=== PATIENT | female | born 1970 | race Caucasian/White ===

== ENCOUNTER 2021-08-05 18:29 | Emergency (ER) | payer OTHER ==
[~2021-08-05] VITALS: Ht 165.1 cm; Wt 72.6 kg
[~2021-08-05 18:29] MED LIST: ACID CONTROL75 MG PO; BACTRIM DS TAB1 EACH PO; CYCLOBENZAPRINE10 MG PO; EXCEDRIN EXTRA1 EAC1 PO; EXTRA STRENGTH500 MG PO; GEODON60 MG PO; GEODON80 MG PO; HYDROXYZINE HCL50 MG PO; IBUPROFEN600 MG PO; KLONOPIN2 MG PO; LEVOTHROID100 MCG PO; LEVOTHYROXINE200 MCG PO; LEVOTHYROXINE25 MCG PO; LITHIUM CARBON300 M1 PO; MOTRIN IB200 MG PO; NORCO 5-325 TA1 EACH PO; OXYCODONE-ACET1 EAC1 PO; PRAZOSIN HCL2 MG PO; REQUIP4 MG PO; SYNTHROID200 MCG PO; TRAMADOL HCL50 MG PO; TRAZODONE HCL150 MG PO; WELLBUTRIN XL300 MG PO
--- OUTSIDE RECORDS SUMMARY | 2021-08-05 18:32 | XMS ---
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 [place] VISIT COUNT (12 MO.) [address] TOTAL 3 NOTE: Visits indicate total known visits. ED/UCC VISIT TRACKING (12 MO.) 08/05/2021 18:30 [facility] TYPE: Emergency COMPLAINT: - LEG SWELLING 07/12/2021 05:20 [facility] OR TYPE: Emergency COMPLAINT: - RAUSCH DIAGNOSES: - RAUSCH 12/21/2020 15:02 [facility] OR TYPE: Emergency DIAGNOSES: - TOE INJ - Nondisplaced fracture of proximal phalanx of left lesser toe(s), initial encounter for closed fracture INPATIENT VISIT TRACKING (12 MO.) 07/12/2021 08:25 [facility] OR TYPE: Medical Surgical DIAGNOSES: - Other psychoactive substance abuse, uncomplicated - Myxedema coma - RAUSCH - Encephalopathy, unspecified [email or web address]
[2021-08-05] MEDS ORDERED: LEVOTHYROXINE175 MC1 PO (19:21)
[2021-08-05] MEDS ORDERED: GABAPENTIN400 MG PO (19:22)
== END 2021-08-05 22:19 | disposition home or self-care (01) ==
LOC: ED 18:29
DX: M79.89 Other specified soft tissue disorders (principal); Z98.84 Bariatric surgery status; Z90.710 Acquired absence of both cervix and uterus; Z79.899 Other long term (current) drug therapy
CPT/HCPCS: 71045; 80053; 83880; 84443; 85025; 93970; 99284-25

== ENCOUNTER 2022-10-17 20:23 | Emergency (ER) | payer OTHER ==
[~2022-10-17] VITALS: Ht 165.1 cm; Wt 79.4 kg
[~2022-10-17 20:23] MED LIST changes: +GABAPENTIN400 MG PO; +LEVOTHYROXINE175 MC1 PO
[2022-10-18] MEDS ORDERED: SYNTHROID150 MCG PO (00:04)
--- NOTE | 2022-10-18 07:47 | EKG ---
[facility] [address] [place], [place] [address] Signed Normal sinus rhythm Cannot rule out Anterior infarct , age undetermined Abnormal ECG No previous ECGs available Confirmed by MARGAUX BABIN MD ([id number]) on 10/18/2022 7:47:21 AM Electronically Signed By: MARGAUX BABIN MD 10/18/22 0747 PATIENT NAME: SILVIO CORTES Electrocardiogram DATE OF : 68 PHYSICIAN: MARGAUX BABIN MD REPORT #: [id number] REPORT IS CONFIDENTIAL AND NOT TO BE RELEASED WITHOUT AUTHORIZATION
== END 2022-10-18 00:30 | disposition home or self-care (01) ==
LOC: ED 20:23
DX: E03.9 Hypothyroidism, unspecified (principal); I50.9 Heart failure, unspecified; D64.9 Anemia, unspecified; Z79.899 Other long term (current) drug therapy
CPT/HCPCS: 36415; 71045; 80053; 83880; 84443; 84484; 85025; 85379; 93005; 93010; 99284-25

== ENCOUNTER 2024-07-25 14:44 | Emergency (ER) | payer OTHER ==
[~2024-07-25] VITALS: Ht 165.1 cm; Wt 83.2 kg
[~2024-07-25 14:44] MED LIST changes: +SYNTHROID150 MCG PO
--- OUTSIDE RECORDS SUMMARY | 2024-07-25 14:47 | XMS ---
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 PHONE: [phone] Abisai has no Care Guidelines for this patient. [place] VISIT COUNT (12 MO.) [address] [place] [address] [facility] TOTAL 9 NOTE: Visits indicate total known visits. ED/UCC VISIT TRACKING (12 MO.) 07/25/2024 14:44 [facility] TYPE: Emergency COMPLAINT: - ABDOMINAL PAIN 07/19/2024 11:52 [facility] OR TYPE: Emergency DIAGNOSES: - Displacement of indwelling urethral catheter, initial encounter - CATHETER ISSUE 07/17/2024 22:52 [facility] OR TYPE: Emergency DIAGNOSES: - Bacteriuria - Other acute postprocedural pain - Unspecified complication of genitourinary prosthetic device, implant and graft, initial encounter - ABDOMINAL PAIN 07/16/2024 00:22 [facility] TYPE: Emergency DIAGNOSES: - Other acute postprocedural pain - Other retention of urine - Unspecified abdominal pain - bleeding - bleeding from abd - open wound 07/09/2024 09:15 [facility] OR TYPE: Emergency COMPLAINT: - LEFT SIDED PAIN CONSTIPATION DIAGNOSES: - LEFT SIDED PAIN CONSTIPATION 07/07/2024 08:16 [facility] TYPE: Emergency DIAGNOSES: - Constipation, unspecified - Disorder of kidney and ureter, unspecified - Hypothyroidism, unspecified - Unspecified hydronephrosis - Weakness - weakness 06/28/2024 15:02 [facility] TYPE: Emergency DIAGNOSES: - Pain in left hand - Unspecified fracture of left wrist and hand, initial encounter for closed fracture - L HAND PAIN 06/23/2024 16:42 [facility] [place] TYPE: Emergency DIAGNOSES: - Displaced fracture of neck of fifth metacarpal bone, left hand, initial encounter for closed fracture - HAND INJURY 04/13/2024 22:03 [facility] [place] TYPE: Emergency DIAGNOSES: - Blister (nonthermal), left lesser toe(s), initial encounter - Cellulitis of left lower limb - Local infection of the skin and subcutaneous tissue, unspecified - FOOT INJURY INPATIENT VISIT TRACKING (12 MO.) 07/09/2024 09:15 [facility] OR TYPE: Medical Surgical DIAGNOSES: - Drug induced constipation - Myxedema coma - Opioid abuse, uncomplicated - Unspecified hydronephrosis [email or web address]
[2024-07-25] MEDS ORDERED: LEVOTHYROXINE175 MCG PO (15:03)
[2024-07-25] MEDS ORDERED: OXYCODONE-ACET1 EAC1 PO (15:03)
[2024-07-25] MEDS ORDERED: LEVOFLOXACIN500 MG PO (15:03)
[2024-07-25] MEDS ORDERED: KETOROLAC TROMETHAMINE 15 MG/ML VIAL IV ONE (15:15)
[2024-07-25] MEDS ORDERED: ondansetron HCL 4 MG/2 ML VIAL IV ONE (15:15)
[2024-07-25 15:29] LABS: BASOPHILS 1.5 % (0-2); EOSINOPHILS 2.7 % (0-6); HEMATOCRIT 29.4 % (35.0-50.0); HEMOGLOBIN 9.7 g/dL (12.0-18.0); LYMPHOCYTES 21.2 % (24-44); MCH 31.3 (27-36); MCHC 33.1 g/dl (30-36); MCV 94.8 fl (81-99); NEUTROPHILS 61.6 % (39-80); PLATELET COUNT 313 K/uL (140-440); RDW 15.1 (10.5-15.0)
[2024-07-25 15:45] LABS: ALBUMIN 3.1 g/dL (3.4-5.0); ALBUMIN/GLOBULIN RATIO 0.89 (1.1-2.4); ANION GAP 13.3 (7-21); BILIRUBIN, TOTAL 0.7 ng/dL (0.2-1.0); BUN/CREATININE RATIO 19.44 (6.0-28.6); CREATININE, SERUM 0.72 mg/dL (0.55-1.02); POTASSIUM 4.3 mmol/L (3.5-5.1); PROTEIN, TOTAL 6.6 g/dL (6.4-8.2)
[2024-07-25] MEDS ORDERED: KETOROLAC TROMETHAMINE 30 MG/ML VIAL IM ONE (16:00)
[2024-07-25] MEDS ORDERED: ONDANSETRON 4 MG TAB ODT SL ONE (16:00)
[2024-07-25] MEDS ORDERED: LIDOCAINE 2% VISCOUS 6 ML SYR TOP ONE (16:15)
[2024-07-25 17:00] LABS: BILIRUBIN, URINE NEGATIVE (negative); BLOOD/HGB, URINE LARGE (Negative); KETONE, URINE NEGATIVE (Negative); LEUK ESTERASE, URINE MODERATE (negative); NITRITE, URINE NEGATIVE (negative); PH, URINE 6.5 (5-7)
[2024-07-25 17:07] LABS: EPITHELIAL CELLS, URINE SQUAMOUS 1+ /lpf (0-1+); RED BLOOD CELLS, URINE >50 /hpf (0-5)
[2024-07-25 17:08] LABS: BACTERIA, URINE RARE /hpf (negative); CASTS, URINE NONE SEEN \\lpf; COLLECTION TYPE, URINE CLEAN CATCH; CRYSTALS, URINE NONE SEEN (0-1+); REFLEX CULTURE, URINE Yes (No); WHITE BLOOD CELLS, URINE 41-50 /HPF (0-5)
[2024-07-25] MEDS ORDERED: CEFTRIAXONE/SODIUM CHLORIDE 1 GM/100 ML PIGGYBACK IV ONE (18:15)
[2024-07-25] MEDS ORDERED: CEFDINIR 300 MG CAP PO ONE (18:30)
[2024-07-25] MEDS ORDERED: DOXYCYCLINE HYCLATE 100 MG CAP PO ONE (18:30)
[2024-07-25] MEDS ORDERED: ACETAMINOPHEN 500 MG TAB PO ONE (18:45)
[2024-07-25] MEDS ORDERED: LASIX40 MG PO (18:55)
[2024-07-25] MEDS ORDERED: CEFDINIR300 MG PO (18:55)
[2024-07-25] MEDS ORDERED: DOXYCYCLINE HY100 MG PO (18:55)
[2024-07-25] MEDS ORDERED: FUROSEMIDE 40 MG TAB PO ONE (19:00)
[2024-07-25 19:03] VITALS: BP 130/90
== END 2024-07-25 19:04 | disposition home or self-care (01) ==
LOC: ED 14:44
PROVIDERS: Emergency Medicine
DX: L03.116 Cellulitis of left lower limb (principal); L03.115 Cellulitis of right lower limb; N39.0 Urinary tract infection, site not specified; R60.9 Edema, unspecified; Z79.890 Hormone replacement therapy; Z79.2 Long term (current) use of antibiotics; Z98.890 Other specified postprocedural states
CPT/HCPCS: 36415; 51702; 74176; 80053; 81001; 83690; 85025; 87088; 93970; 99284-25; A9270; J1885